=== PATIENT | female | born 1945 | race Caucasian/White ===

== ENCOUNTER 2019-01-12 11:27 | Emergency (ER) | payer MEDICARE, BC ==
[2019-01-12] MEDS ORDERED: Sodium Chloride 0.9% 10 ML Syringe FLUSH PRN (11:49)
--- NOTE | 2019-01-12 14:47 | EDM.PDOC ---
ED HPI GENERAL MEDICAL PROBLEM - General Chief Complaint: Genitourinary Problem Stated Complaint: KIDNEY FAILURE Time Seen by Provider: 01/12/19 11:50 Source of Information: Reports: Patient History Limitations: Reports: No Limitations - History of Present Illness INITIAL COMMENTS - FREE TEXT/NARRATIVE: Patient is a 73 year old female with hx of stage 5 CKD who presents to the E.D. to have labs checked. Patient has a history of n/v and has been dry heaving this weekend. She see's Dr. Calle. Patient states the n/v is a chronic issue. THis has been going on for some time. Patient has been in contact with Dr. Calle's clinic this a.m. with instructions to come to the E.D. to ensure kidney failure is not worsening. Patient is not on dialysis currently. Patient has been eating and drinking okay. Denies loss of weight, fever, chills, sob, cp , pnd, orthopnea, dizziness, dysuria, and or increased swelling to lower extremities. Patient has been unable to schedule an appt with Dr. Calle as of recent and is frustrated. - Related Data Allergies Allergy/AdvReac Type Severity Reaction Status Date / Time No Known Allergies Allergy Verified 01/12/19 11:37 Home Meds: Home Meds Allopurinol [Zyloprim] 200 mg PO DAILY 01/12/19 [History] Apixaban [Eliquis] 2.5 mg PO BID 01/12/19 [History] Calcitriol 0.25 mcg PO DAILY 01/12/19 [History] Furosemide 20 mg PO DAILY 01/12/19 [History] Metoclopramide HCl [Reglan] 5 mg PO TID #40 tablet 01/12/19 [Rx] Metoprolol Succinate [Toprol XL 100mg] 100 mg PO DAILY 01/12/19 [History] Metoprolol Succinate [Toprol XL 50mg] 50 mg PO BEDTIME 01/12/19 [History] Omeprazole 20 mg PO DAILY 01/12/19 [History] Sodium Bicarbonate 650 mg PO Q6H 01/12/19 [History] Venlafaxine HCl [Venlafaxine ER] 150 mg PO DAILY 01/12/19 [History] amLODIPine [Norvasc] 10 mg PO DAILY 01/12/19 [History] atorvaSTATin [Lipitor] 10 mg PO BEDTIME 01/12/19 [History] rOPINIRole [Requip] 1 mg PO BEDTIME 01/12/19 [History] Past Medical History - Past Health History Medical/Surgical History: Denies Medical/Surgical History Cardiovascular History: Reports: Hypertension Genitourinary History: Reports: Acute Renal Failure Musculoskeletal History: Reports: Arthritis Neurological History: Reports: Migraines Social & Family History - Tobacco Use Smoking Status *Q: Never Smoker - Recreational Drug Use Recreational Drug Use: No ED ROS GENERAL - Review of Systems Review Of Systems: ROS reveals no pertinent complaints other than HPI. ED EXAM, GENERAL - Physical Exam Exam: See Below Exam Limited By: No Limitations General Appearance: Alert, WD/WN, No Apparent Distress Ears: Hearing Grossly Normal Nose: Normal Inspection Throat/Mouth: Normal Voice, No Airway Compromise Neck: Normal Inspection, Supple Respiratory/Chest: No Respiratory Distress, Lungs Clear, Normal Breath Sounds, No Accessory Muscle Use Cardiovascular: Normal Peripheral Pulses, Regular Rate, Rhythm, No Murmur ( obvious) Peripheral Pulses: 2+: Radial (R) GI/Abdominal: Normal Bowel Sounds, Soft, Non-Tender, No Organomegaly, No Distention Back Exam: Normal Inspection Extremities: Normal Inspection, Normal Range of Motion, Non-Tender, Pedal Edema (trace) Neurological: Alert, Oriented, CN II-XII Intact, Normal Cognition, No Motor/ Sensory Deficits Psychiatric: Normal Affect, Normal Mood Skin Exam: Warm, Dry, Intact, Normal Color Course - Vital Signs Last Recorded V/S: Last Vital Signs Temp 97.4 F 01/12/19 11:34 Pulse 94 01/12/19 11:34 Resp 16 01/12/19 11:34 BP 159/90 H 01/12/19 11:34 Pulse Ox 95 01/12/19 11:34 - Orders/Labs/Meds Labs: Laboratory Tests 01/12/19 01/12/19 01/12/19 Range/Units 12:08 12:39 12:39 WBC 7.05 (3.98-10.04) K/mm3 RBC 3.59 L (3.98-5.22) M/mm3 Hgb 10.6 L (11.2-15.7) gm/L Hct 33.0 L (34.1-44.9) % MCV 91.9 (79.4-94.8) fl MCH 29.5 (25.6-32.2) pg MCHC 32.1 L (32.2-35.5) g/dl RDW Std Deviation 47.4 H (36.4-46.3) fL Plt Count 280 (182-369) K/mm3 MPV 10.6 (9.4-12.3) fl Neutrophils % (Manual) 81 H (40-60) % Band Neutrophils % 0 (0-10) % Lymphocytes % (Manual) 10 L (20-40) % Atypical Lymphs % 0 % Monocytes % (Manual) 6 (2-10) % Eosinophils % (Manual) 1 (0.7-5.8) % Basophils % (Manual) 2 H (0.1-1.2) Platelet Estimate Adequate RBC Morph Comment Normal Sodium 144 (136-145) mEq/L Potassium 4.0 (3.5-5.1) mEq/L Chloride 108 H (98-107) mEq/L Carbon Dioxide 23 (21-32) mEq/L Anion Gap 17.0 H (5-15) BUN 65 H (7-18) mg/dL Creatinine 4.9 H (0.55-1.02) mg/dL Est Cr Clr Drug Dosing 8.46 mL/min Estimated GFR (MDRD) 9 (>60) mL/min BUN/Creatinine Ratio 13.3 L (14-18) Glucose 94 (83-115) mg/dL Calcium 9.0 (8.5-10.1) mg/dL Total Bilirubin 0.5 (0.2-1.0) mg/dL AST 17 (15-37) U/L ALT 16 (14-59) U/L Alkaline Phosphatase 67 (46-116) U/L Total Protein 7.2 (6.4-8.2) g/dl Albumin 3.7 (3.4-5.0) g/dl Globulin 3.5 gm/dL Albumin/Globulin Ratio 1.1 (1-2) Lipase 108 (73-393) U/L Urine Color Yellow (Yellow) Urine Appearance Slt cloudy H (Clear) Urine pH 5.5 (5.0-8.0) Ur Specific [place] 1.020 (1.005-1.030) Urine Protein 3+ H (Negative) Urine Glucose (UA) Negative (Negative) Urine Ketones Negative (Negative) Urine Occult Blood 2+ H (Negative) Urine Nitrite Negative (Negative) Urine Bilirubin Negative (Negative) Urine Urobilinogen 0.2 (0.2-1.0) Ur Leukocyte Esterase Trace H (Negative) Urine RBC Not seen (0-5) /hpf Urine WBC 10-20 H (0-5) /hpf Urine WBC Clumps Few (NOT SEEN) /hpf Ur Squamous Epith Cells Not seen (0-5) /hpf Urine Bacteria Moderate H (FEW) /hpf Urine Mucus Few (FEW) /hpf Meds: Medications Discontinued Medications Generic Name Dose Route Start Last Admin Trade Name Rogerio PRN Reason Stop Dose Admin Metoclopramide HCl 5 mg 01/12/19 14:53 01/12/19 15:26 Reglan IVPUSH 01/12/19 14:54 5 mg ONETIME ONE Administration Sodium Chloride 10 ml 01/12/19 11:49 01/12/19 12:42 Saline Flush FLUSH 10 ml ASDIRECTED PRN Administration Keep Vein Open - Re-Assessments/Exams Free Text/Narrative Re-Assessment/Exam: Vital signs are stable. Patient is afebrile. O2 sats normal. Will obtain some basic labs as well as a UA. Labs have come back white blood cell count 7.05, hemoglobin 10.6, platelet count normal, sodium 144, potassium 4.0, AG 17, BUN 65, creatinine 4.9 which is her baseline. BUN is also her baseline 2.. Lipase 108. UA 3+ protein, 2+ blood, leukocyte Estrace trace, white blood cells 10-20, bacteria moderate. I have asked to speak with Dr. Calle. [place]. They will page out on-call public defender and call back when available. [id number] Loyd public defender with [facility]. Reviewed all labs with Dr. Loyd with no concerns. Creatinine and BUN are baseline. CO2 normal. In addition discussed UA results, since patient having no symptoms no treatment at this time. Recommended Reglan 5 mg one tab 3 times a day 30 minutes before meals for 2 days then every morning 5 mg 30 minutes before breakfast. Schedule appt with Dr. Calle to be evaluated in two wks. Discussed lab results and discussion nephrology with the patient. Return precautions were discussed with the patient. She had no further questions or concerns. Departure - Departure Time of Disposition: 14:54 Disposition: Home, Self-Care 01 Condition: Good Clinical Impression: Nausea and vomiting Qualifiers: Vomiting type: unspecified Vomiting Intractability: non-intractable Qualified Code(s): R11.2 - Nausea with vomiting, unspecified Chronic renal failure Qualifiers: Chronic kidney disease stage: stage 5 Qualified Code(s): N18.5 - Chronic kidney disease, stage 5 - Discharge Information Prescriptions: Metoclopramide HCl [Reglan] 5 mg PO TID #40 tablet Instructions: Nausea and Vomiting, Adult, Chronic Kidney Disease, Adult, Easy- to-Read Referrals: Yash Jackson MD [Primary Care Provider] - Chris Calle MD [Ordering Only Provider] - Forms: ED Department Discharge Additional Instructions: I spoke with Dr. Loyd with nephrology at [facility]. He recommended starting you on Reglan 5 mg one tab 3 times a day 30 minutes before meals for 2 days then 5 mg every morning half-hour before breakfast thereafter. Make an appointment with Dr. Calle for 2 weeks. You can call today and schedule the appointment. Please return back to the ED if you develop any new or worsening symptoms.
[2019-01-12] MEDS ORDERED: Metoclopramide 10 MG/2 ML SDV IVPUSH ONE (14:53)
== END 2019-01-12 15:35 | disposition home or self-care (01) ==
LOC: JD.ED 11:27
DX: R11.2 Nausea with vomiting, unspecified (principal); I12.0 Hypertensive chronic kidney disease with stage 5 chronic kidney disease or end stage renal disease; N18.5 Chronic kidney disease, stage 5; Z79.899 Other long term (current) drug therapy
CPT/HCPCS: 36415; 80053; 81001; 83690; 85007; 85027; 87086; 87088; 87186; 96374; 99284; J2765

== ENCOUNTER 2019-01-18 12:54 | Emergency (ER) | payer MEDICARE, BC ==
[2019-01-18] MEDS ORDERED: LORazepam 0.5 MG Tab PO ONE (14:50)
--- NOTE | 2019-01-18 16:58 | EDM.PDOC ---
ED HPI GENERAL MEDICAL PROBLEM - General Chief Complaint: General Stated Complaint: CONFUSED SINCE MEDICATION CHANGE Time Seen by Provider: 01/18/19 14:35 Source of Information: Reports: Patient History Limitations: Reports: No Limitations - History of Present Illness INITIAL COMMENTS - FREE TEXT/NARRATIVE: 73-year-old female is brought in by her family for side effects from medication. Patient was seen here in the ER on January 12. She was started on Reglan for nausea and vomiting. She was also started on Keflex for UTI on . Patient reports she has finished the Keflex as prescribed. She states that the nausea and vomiting has improved. She reports since starting the Reglan she has worsening restlessness and anxiety. She states that she cannot sleep. She reports a decreased appetite. Reports associated dizziness. Denies any headaches. She's reports that she has chronic back pain and leg pain and feels slightly worse than normal. Family reports that she has confusion but on further investigation they actually describing more restlessness and anxiety. patient reports that she has fallen several times in the last month. She's not had any head trauma with these falls. She denies any headaches at this time. Primary care provider is Dr. Jackson. He has a past medical history of stage V chronic kidney disease. She is not on dialysis at this time. She does see a accounts payable supervisor, Dr. Calle for this. Her creatinine and GFR have remained stable for the last few months and at this time there are holding off on starting her on dialysis. Generalized Pain Score (Numeric/FACES): 8 - Related Data Allergies Allergy/AdvReac Type Severity Reaction Status Date / Time No Known Allergies Allergy Verified 01/18/19 13:40 Home Meds: Home Meds Allopurinol [Zyloprim] 200 mg PO DAILY 01/12/19 [History] Apixaban [Eliquis] 2.5 mg PO BID 01/12/19 [History] Calcitriol 0.25 mcg PO DAILY 01/12/19 [History] Furosemide 20 mg PO DAILY 01/12/19 [History] Metoclopramide HCl [Reglan] 5 mg PO TID #40 tablet 01/12/19 [Rx] Metoprolol Succinate [Toprol XL 100mg] 100 mg PO DAILY 01/12/19 [History] Metoprolol Succinate [Toprol XL 50mg] 50 mg PO BEDTIME 01/12/19 [History] Omeprazole 20 mg PO DAILY 01/12/19 [History] Sodium Bicarbonate 650 mg PO Q6H 01/12/19 [History] Venlafaxine HCl [Venlafaxine ER] 150 mg PO DAILY 01/12/19 [History] amLODIPine [Norvasc] 10 mg PO DAILY 01/12/19 [History] atorvaSTATin [Lipitor] 10 mg PO BEDTIME 01/12/19 [History] rOPINIRole [Requip] 1 mg PO BEDTIME 01/12/19 [History] Cephalexin [Keflex] 1 cap PO DAILY #5 capsule 01/14/19 [Rx] LORazepam [Ativan] 0.5 mg PO TID PRN #5 tablet 01/18/19 [Rx] Past Medical History - Past Health History Medical/Surgical History: Denies Medical/Surgical History Cardiovascular History: Reports: Hypertension Genitourinary History: Reports: Acute Renal Failure Musculoskeletal History: Reports: Arthritis Neurological History: Reports: Migraines Social & Family History - Tobacco Use Smoking Status *Q: Never Smoker Second Hand Smoke Exposure: No - Caffeine Use Caffeine Use: Reports: Soda - Recreational Drug Use Recreational Drug Use: No ED ROS GENERAL - Review of Systems Review Of Systems: See Below Constitutional: Reports: Decreased Appetite. Denies: Fever, Chills Respiratory: Reports: Cough. Denies: Shortness of Breath Cardiovascular: Denies: Chest Pain GI/Abdominal: Reports: Nausea, Vomiting. Denies: Abdominal Pain : Reports: No Symptoms Musculoskeletal: Reports: Back Pain (chronic back pain), Leg Pain (chronic leg pain) Neurological: Reports: Dizziness. Denies: Headache Psychiatric: Reports: Anxiety, Other (reports restlessness) ED EXAM, GENERAL - Physical Exam Exam: See Below Exam Limited By: No Limitations General Appearance: Alert, WD/WN, No Apparent Distress, Anxious, Obese Eye Exam: Bilateral Eye: Normal Inspection Ears: Normal External Exam Nose: Normal Inspection Throat/Mouth: Normal Inspection, Normal Voice, No Airway Compromise Respiratory/Chest: No Respiratory Distress, Lungs Clear, Normal Breath Sounds Cardiovascular: Normal Peripheral Pulses, Regular Rate, Rhythm, No Murmur GI/Abdominal: Normal Bowel Sounds, Soft, Non-Tender Back Exam: Normal Inspection Extremities: Normal Inspection Neurological: Alert, Oriented, Normal Cognition Psychiatric: Normal Affect, Normal Mood Skin Exam: Warm, Dry, Normal Color Course - Vital Signs Last Recorded V/S: Last Vital Signs Temp 97.0 F 01/18/19 13:34 Pulse 74 01/18/19 13:34 Resp 18 01/18/19 13:34 BP 177/93 H 01/18/19 13:34 Pulse Ox 97 01/18/19 13:34 - Orders/Labs/Meds Labs: Laboratory Tests 01/18/19 01/18/19 01/18/19 Range/Units 15:10 15:10 15:54 WBC 9.19 (3.98-10.04) K/mm3 RBC 3.71 L (3.98-5.22) M/mm3 Hgb 11.2 (11.2-15.7) gm/L Hct 33.7 L (34.1-44.9) % MCV 90.8 (79.4-94.8) fl MCH 30.2 (25.6-32.2) pg MCHC 33.2 (32.2-35.5) g/dl RDW Std Deviation 46.4 H (36.4-46.3) fL Plt Count 314 (182-369) K/mm3 MPV 10.7 (9.4-12.3) fl Neut % (Auto) 72.0 H (34.0-71.1) % Lymph % (Auto) 15.9 L (19.3-51.7) % [place] % (Auto) 7.3 (4.7-12.5) % Eos % (Auto) 3.8 (0.7-5.8) Baso % (Auto) 0.7 (0.1-1.2) % Neut # (Auto) 6.62 H (1.56-6.13) K/mm3 Lymph # (Auto) 1.46 (1.18-3.74) K/mm3 Dickenson # (Auto) 0.67 H (0.24-0.36) K/mm3 Eos # (Auto) 0.35 (0.04-0.36) K/mm3 Baso # (Auto) 0.06 (0.01-0.08) K/mm3 Manual Slide Review Abnormal smear Sodium 143 (136-145) mEq/L Potassium 4.1 (3.5-5.1) mEq/L Chloride 106 (98-107) mEq/L Carbon Dioxide 20 L (21-32) mEq/L Anion Gap 21.1 H (5-15) BUN 65 H (7-18) mg/dL Creatinine 4.6 H (0.55-1.02) mg/dL Est Cr Clr Drug Dosing 9.01 mL/min Estimated GFR (MDRD) 9 (>60) mL/min BUN/Creatinine Ratio 14.1 (14-18) Glucose 107 (83-115) mg/dL Calcium 8.7 (8.5-10.1) mg/dL Magnesium 1.8 (1.8-2.4) mg/dl Total Bilirubin 0.4 (0.2-1.0) mg/dL AST 16 (15-37) U/L ALT 17 (14-59) U/L Alkaline Phosphatase 69 (46-116) U/L Total Protein 7.6 (6.4-8.2) g/dl Albumin 4.1 (3.4-5.0) g/dl Globulin 3.5 gm/dL Albumin/Globulin Ratio 1.2 (1-2) Urine Color Yellow (Yellow) Urine Appearance Clear (Clear) Urine pH 5.5 (5.0-8.0) Ur Specific [place] 1.020 (1.005-1.030) Urine Protein 3+ H (Negative) Urine Glucose (UA) Negative (Negative) Urine Ketones Negative (Negative) Urine Occult Blood Trace-intact H (Negative) Urine Nitrite Negative (Negative) Urine Bilirubin Negative (Negative) Urine Urobilinogen 0.2 (0.2-1.0) Ur Leukocyte Esterase Negative (Negative) Urine RBC 0-5 (0-5) /hpf Urine WBC Not seen (0-5) /hpf Ur Squamous Epith Cells 0-5 (0-5) /hpf Urine Bacteria Not seen (FEW) /hpf Urine Mucus Not seen (FEW) /hpf Meds: Medications Discontinued Medications Generic Name Dose Route Start Last Admin Trade Name Freq PRN Reason Stop Dose Admin Lorazepam 0.5 mg 01/18/19 14:50 01/18/19 16:05 Ativan PO 01/18/19 14:51 0.5 mg ONETIME ONE Administration Lorazepam 0.5 mg 01/18/19 17:26 01/18/19 17:29 Ativan PO 01/18/19 17:27 0.5 mg ONETIME STA Administration - Re-Assessments/Exams Free Text/Narrative Re-Assessment/Exam: 01/18/19 16:56 Reviewed the lab results with the patient. She feels greatly improved after receiving some Ativan. I'll prescribe her some Ativan to take at home. She has already stopped the Reglan. This was stopped this yesterday afternoon. Half- life of Reglan was about 5 to 6 hours. She may continue to have some side effects from tonight and tomorrow morning but in her symptoms should improve. We will discharge her home. Discharge instructions as documented. Departure - Departure Time of Disposition: 16:56 Disposition: Home, Self-Care 01 Condition: Good Clinical Impression: Side effect of medication - Discharge Information *PRESCRIPTION DRUG MONITORING PROGRAM REVIEWED*: No *COPY OF PRESCRIPTION DRUG MONITORING REPORT IN PATIENT MARVIN: No Prescriptions: LORazepam [Ativan] 0.5 mg PO TID PRN #5 tablet PRN Reason: Anxiety Referrals: Yash Jackson MD [Primary Care Provider] - Forms: ED Department Discharge Additional Instructions: Take the Ativan as prescribed. 1 tab 3 times a day as needed for anxiety. Follow-up with your primary care provider this week for recheck your symptoms. Please return to ER if your symptoms change or worsen.
[2019-01-18] MEDS ORDERED: LORazepam 0.5 MG Tab PO STA (17:26)
== END 2019-01-18 17:25 | disposition home or self-care (01) ==
LOC: JD.ED 12:54
DX: R45.1 Restlessness and agitation (principal); F41.9 Anxiety disorder, unspecified; T45.0X5A Adverse effect of antiallergic and antiemetic drugs, initial encounter; R11.2 Nausea with vomiting, unspecified; I12.9 Hypertensive chronic kidney disease with stage 1 through stage 4 chronic kidney disease, or unspecified chronic kidney disease; N18.5 Chronic kidney disease, stage 5; Z79.899 Other long term (current) drug therapy; Z79.01 Long term (current) use of anticoagulants
CPT/HCPCS: 36415; 80053; 81001; 83735; 85025; 99284; A9270

== ENCOUNTER 2019-05-16 08:08 | Emergency (ER) | payer MEDICARE, BC ==
--- NOTE | 2019-05-16 08:19 | EDM.PDOC ---
ED HPI GENERAL MEDICAL PROBLEM - General Chief Complaint: Back Pain or Injury Stated Complaint: BACK PAIN Time Seen by Provider: 05/16/19 08:19 - History of Present Illness INITIAL COMMENTS - FREE TEXT/NARRATIVE: 74-year-old female presents emergency room with back pain. the patient is having continued back pain. This is been going on well over a month. Seems to be aggravated by sitting in the dialysis chair. She's been having significant discomfort with this. The patient also has been having problems with constipation however she was started on lactulose 30 mL twice a day and this fixed the problem the patient had multiple loose runny stools this created a mess several days ago she stopped the lactulose. She had a small BM yesterday. Patient has not had any loss of bowel or bladder control however she is on dialysis. She has not had any recent injuries to her back. - Related Data Allergies Allergy/AdvReac Type Severity Reaction Status Date / Time No Known Allergies Allergy Verified 05/16/19 08:16 Home Meds: Home Meds Allopurinol [Zyloprim] 200 mg PO DAILY 01/12/19 [History] Apixaban [Eliquis] 2.5 mg PO BID 01/12/19 [History] Calcitriol 0.25 mcg PO DAILY 01/12/19 [History] Furosemide 20 mg PO DAILY 01/12/19 [History] Metoclopramide HCl [Reglan] 5 mg PO TID #40 tablet 01/12/19 [Rx] Metoprolol Succinate [Toprol XL 100mg] 100 mg PO DAILY 01/12/19 [History] Metoprolol Succinate [Toprol XL 50mg] 50 mg PO BEDTIME 01/12/19 [History] Omeprazole 20 mg PO DAILY 01/12/19 [History] Sodium Bicarbonate 650 mg PO Q6H 01/12/19 [History] Venlafaxine HCl [Venlafaxine ER] 150 mg PO DAILY 01/12/19 [History] amLODIPine [Norvasc] 10 mg PO DAILY 01/12/19 [History] atorvaSTATin [Lipitor] 10 mg PO BEDTIME 01/12/19 [History] rOPINIRole [Requip] 1 mg PO BEDTIME 01/12/19 [History] LORazepam [Ativan] 0.5 mg PO TID PRN #5 tablet 01/18/19 [Rx] Acetaminophen/HYDROcodone [Morse 325-5 MG] 1 tab PO Q6H PRN #15 tablet 05/16/19 [Rx] Lactulose 10 gm PO Q12H #265 ml 05/16/19 [Rx] Past Medical History - Past Health History Medical/Surgical History: Denies Medical/Surgical History Cardiovascular History: Reports: Hypertension Genitourinary History: Reports: Acute Renal Failure Musculoskeletal History: Reports: Arthritis Neurological History: Reports: Migraines Social & Family History - Tobacco Use Smoking Status *Q: Never Smoker Second Hand Smoke Exposure: No - Caffeine Use Caffeine Use: Reports: Soda - Recreational Drug Use Recreational Drug Use: No ED ROS GENERAL - Review of Systems Review Of Systems: See Below Constitutional: Reports: No Symptoms Respiratory: Reports: No Symptoms Cardiovascular: Reports: No Symptoms GI/Abdominal: Reports: Constipation, Diarrhea. Denies: Nausea, Vomiting : Reports: No Symptoms ED EXAM,LOWER BACK PAIN/INJURY - Physical Exam Exam: See Below Exam Limited By: No Limitations General Appearance: Alert, No Apparent Distress, Other (She is slow to move around because of her right-sided low back) Head: Atraumatic, Normocephalic Neck: Normal Inspection, Supple, Non-Tender, Full Range of Motion. No: Lymphadenopathy (L), Lymphadenopathy (R) Respiratory/Chest: No Respiratory Distress, Lungs Clear, Normal Breath Sounds Cardiovascular: Regular Rate, Rhythm, No Edema, No Murmur GI/Abdominal: Normal Bowel Sounds, Soft, Non-Tender Back Exam: Normal Inspection, Muscle Spasm (In the right lower back paraspinous muscles from the top the lumbar region on down), Other (Straight leg raises bringing up localized back pain on the right no radicular symptoms). No: CVA Tenderness (L), CVA Tenderness (R), Vertebral Tenderness Course - Vital Signs Last Recorded V/S: Last Vital Signs Temp 36.1 C 05/16/19 08:15 Pulse 99 05/16/19 08:15 Resp 14 05/16/19 08:15 BP 134/95 H 05/16/19 08:15 Pulse Ox 100 05/16/19 08:15 - Re-Assessments/Exams Free Text/Narrative Re-Assessment/Exam: 05/16/19 09:03 Will refill the patient's lactulose she only has a small amount left we had a long discussion about how to use this decrease the dose if needed. Refer her back pain muscle relaxants or concerning as is the Morse however the Morse can give her some prompt pain relief so she can go to dialysis later today and be somewhat comfortable. We discussed constipating factors associated with the Morse usage and the importance of staying on the lactulose. The patient will need close clinical follow-up to see how everything is going she is in agreement to this. Departure - Departure Time of Disposition: 08:48 Disposition: Home, Self-Care 01 Clinical Impression: Constipation Lumbar strain Qualifiers: Encounter type: initial encounter Qualified Code(s): S39.012A - Strain of muscle, fascia and tendon of lower back, initial encounter - Discharge Information Prescriptions: Acetaminophen/HYDROcodone [Morse 325-5 MG] 1 tab PO Q6H PRN #15 tablet PRN Reason: Pain Lactulose 10 gm PO Q12H #265 ml Referrals: Yash Jackson MD [Primary Care Provider] - Forms: ED Department Discharge Additional Instructions: Return to the emergency room with any questions problems worsening symptoms. Follow-up with her regular doctor this next week. Continue using the lactulose 15 mL, or 1 tablespoon twice a day you can decrease the dose to 1 tablespoon once a day if her stools become too soft and hard to control. Use the pain medication only as needed. Take 1/2-1 tablet every 6-8 hours as needed. Use caution with this medication as it can cause sedation and limit your judgment.
== END 2019-05-16 09:06 | disposition home or self-care (01) ==
LOC: JD.ED 08:08
DX: S39.012A Strain of muscle, fascia and tendon of lower back, initial encounter (principal); K59.00 Constipation, unspecified; I10 Essential (primary) hypertension; M19.90 Unspecified osteoarthritis, unspecified site; Z79.899 Other long term (current) drug therapy; Z79.01 Long term (current) use of anticoagulants; X58.XXXA Exposure to other specified factors, initial encounter
CPT/HCPCS: 99283

== ENCOUNTER 2020-04-22 09:46 | Emergency (ER) | payer MEDICARE, BC ==
--- NOTE | 2020-04-22 10:11 | EDM.PDOC ---
ED HPI GENERAL MEDICAL PROBLEM - General Chief Complaint: Trauma Stated Complaint: [facility] Time Seen by Provider: 04/22/20 09:51 Source of Information: Reports: Patient, EMS History Limitations: Reports: No Limitations - History of Present Illness INITIAL COMMENTS - FREE TEXT/NARRATIVE: The patient presents by [facility] for a fall. She said she got up thi s morning and she was feeling good. She went to get dressed and felt dizzy that she describes as lightheadedness. She then fell forward and hit her head. She has a headache and neck pain. She is on eliquis for A-fib. She has no fever, chills, cough, congestion, runny nose, chest pain, shortness of breath, abdominal pain, nausea or vomiting. She is on dialysis 3 times per week. She has no hip or leg pain. She did hit her left arm where the fistula is. She has no pain upon palpation. Onset: Today Duration: Minutes: Location: Reports: Head, Neck Quality: Reports: Sharp Severity: Moderate Improves with: Reports: None Worsens with: Reports: None Associated Symptoms: Reports: Headaches. Denies: Chest Pain, Cough, Fever/Chills, Nausea/Vomiting, Shortness of Breath Head Pain Score (Numeric/FACES): 6 - Related Data Allergies Allergy/AdvReac Type Severity Reaction Status Date / Time No Known Allergies Allergy Verified 04/22/20 09:58 Home Meds: Home Meds Apixaban [Eliquis] 2.5 mg PO BID 01/12/19 [History] Furosemide 20 mg PO DAILY 01/12/19 [History] Metoclopramide HCl [Reglan] 5 mg PO TID #40 tablet 01/12/19 [Rx] Metoprolol Succinate [Toprol XL 100mg] 100 mg PO DAILY 01/12/19 [History] Metoprolol Succinate [Toprol XL 50mg] 50 mg PO BEDTIME 01/12/19 [History] Omeprazole 20 mg PO DAILY 01/12/19 [History] Sodium Bicarbonate 650 mg PO Q6H 01/12/19 [History] Venlafaxine HCl [Venlafaxine ER] 150 mg PO DAILY 01/12/19 [History] allopurinoL [Zyloprim] 200 mg PO DAILY 01/12/19 [History] amLODIPine [Norvasc] 10 mg PO DAILY 01/12/19 [History] atorvaSTATin [Lipitor] 10 mg PO BEDTIME 01/12/19 [History] calcitrioL [Calcitriol] 0.25 mcg PO DAILY 01/12/19 [History] rOPINIRole [Requip] 1 mg PO BEDTIME 01/12/19 [History] LORazepam [Ativan] 0.5 mg PO TID PRN #5 tablet 01/18/19 [Rx] Acetaminophen/HYDROcodone [[place] 325-5 MG] 1 tab PO Q6H PRN #15 tablet 05/16/19 [Rx] Lactulose 10 gm PO Q12H #265 ml 05/16/19 [Rx] Past Medical History - Past Health History Medical/Surgical History: Denies Medical/Surgical History Cardiovascular History: Reports: Hypertension Genitourinary History: Reports: Acute Renal Failure 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 Denies: Chest Pain GI/Abdominal: Reports: No Symptoms Genitourinary: Reports: No Symptoms Musculoskeletal: Reports: Neck Pain. Denies: Back Pain ED EXAM, GENERAL - Physical Exam Exam: See Below Exam Limited By: No Limitations General Appearance: Alert, No Apparent Distress Ears: Normal External Exam Nose: Normal Inspection Head: Atraumatic, Normocephalic Neck: Other (Mild tenderness to the upper to mid cervical spine) Respiratory/Chest: No Respiratory Distress, Lungs Clear, Normal Breath Sounds Cardiovascular: Regular Rate, Rhythm, No Edema, No Murmur GI/Abdominal: Soft, Non-Tender, No Organomegaly, No Mass Back Exam: Normal Inspection Extremities: Normal Inspection Neurological: Alert, Oriented, No Motor/Sensory Deficits EKG INTERPRETATION EKG Date: 04/22/20 Time: 09:58 Rhythm: A-Fib Rate (Beats/Min): 67 [place]: Normal P-Wave: Absent QRS: Normal ST-T: Normal QT: Normal Course - Vital Signs Last Recorded V/S: Last Vital Signs Temp 97.4 F 04/22/20 09:52 Pulse 79 04/22/20 09:52 Resp 18 04/22/20 09:52 BP 111/80 04/22/20 09:52 Pulse Ox 99 04/22/20 09:52 - Orders/Labs/Meds Orders: Active Orders 24 hr Category Date Time Status Cardiac Monitoring [RC] . DIRECTED Care 04/22/20 09:56 Active EKG Documentation Completion [RC] STAT Care 04/22/20 09:56 Active Peripheral IV Care [RC] . DIRECTED Care 04/22/20 09:56 Active Sodium Chloride 0.9% [Normal Saline] 500 ml Med 04/22/20 10:48 Ordered IV .BOLUS Sodium Chloride 0.9% [Saline Flush] Med 04/22/20 09:56 Active 10 ml FLUSH ASDIRECTED PRN Peripheral IV Insertion Adult [OM.PC] Stat Oth 04/22/20 09:56 Ordered Medication Orders Sodium Chloride (Saline Flush) 10 ml FLUSH ASDIRECTED PRN PRN Reason: Keep Vein Open Last Admin: 04/22/20 10:18 Dose: 10 ml Documented by: CHACHO Labs: Laboratory Tests 04/22/20 04/22/20 Range/Units 10:06 10:06 WBC 6.55 (3.98-10.04) K/mm3 RBC 3.76 L (3.98-5.22) M/mm3 Hgb 12.3 (11.2-15.7) gm/dl Hct 38.6 (34.1-44.9) % MCV 102.7 H D (79.4-94.8) fl MCH 32.7 H (25.6-32.2) pg MCHC 31.9 L (32.2-35.5) g/dl RDW Std Deviation 51.3 H (36.4-46.3) fL Plt Count 300 (182-369) K/mm3 MPV 10.3 (9.4-12.3) fl Neut % (Auto) 66.9 (34.0-71.1) % Lymph % (Auto) 18.0 L (19.3-51.7) % [place] % (Auto) 9.5 (4.7-12.5) % Eos % (Auto) 4.7 (0.7-5.8) Baso % (Auto) 0.6 (0.1-1.2) % Neut # (Auto) 4.38 (1.56-6.13) K/mm3 Lymph # (Auto) 1.18 (1.18-3.74) K/mm3 [place] # (Auto) 0.62 H (0.24-0.36) K/mm3 Eos # (Auto) 0.31 (0.04-0.36) K/mm3 Baso # (Auto) 0.04 (0.01-0.08) K/mm3 Sodium 138 (136-145) mEq/L Potassium 4.2 (3.5-5.1) mEq/L Chloride 97 L (98-107) mEq/L Carbon Dioxide 28 (21-32) mEq/L Anion Gap 17.2 H (5-15) BUN 33 H D (7-18) mg/dL Creatinine 5.4 H (0.55-1.02) mg/dL Est Cr Clr Drug Dosing 7.45 mL/min Estimated GFR (MDRD) 8 (>60) mL/min BUN/Creatinine Ratio 6.1 L (14-18) Glucose 98 (83-115) mg/dL Calcium 8.7 (8.5-10.1) mg/dL Total Bilirubin 0.4 (0.2-1.0) mg/dL AST 14 L (15-37) U/L ALT 16 (14-59) U/L Alkaline Phosphatase 52 (46-116) U/L Troponin I < 0.017 (0.00-0.056) ng/mL Total Protein 7.7 (6.4-8.2) g/dl Albumin 3.9 (3.4-5.0) g/dl Globulin 3.8 gm/dL Albumin/Globulin Ratio 1.0 (1-2) Meds: Medications Generic Name Dose Route Start Last Admin Trade Name Freq PRN Reason Stop Dose Admin Sodium Chloride 10 ml 04/22/20 09:56 04/22/20 10:18 Saline Flush FLUSH 10 ml ASDIRECTED PRN Administration Keep Vein Open - Re-Assessments/Exams Free Text/Narrative Re-Assessment/Exam: 04/22/20 10:14 I ordered an IV saline lock, EKG, CT of her head and cervical spine, and labs. 04/22/20 10:44 Her EKG shows atrial fibrillation with no acute changes. Her CT of her neck and cervical spine show nothing acute. Her CBC looks good. Her anion gap is elevated at 17.2. Her creatinine is elevated at 5.4. Her troponin is negative. 04/22/20 10:49 She still feels a little dizzy. I will get her a bolus of NS 500mls and discharge her home. Departure - Departure Time of Disposition: 10:50 Disposition: Home, Self-Care 01 Condition: Good Clinical Impression: Lightheaded Fall Qualifiers: Encounter type: initial encounter Qualified Code(s): W19.XXXA - Unspecified fall, initial encounter Head injury Qualifiers: Encounter type: initial encounter Qualified Code(s): S09.90XA - Unspecified injury of head, initial encounter Chronic renal failure Qualifiers: Chronic kidney disease stage: stage 5 Qualified Code(s): N18.5 - Chronic kidney disease, stage 5 - Discharge Information *PRESCRIPTION DRUG MONITORING PROGRAM REVIEWED*: Not Applicable *COPY OF PRESCRIPTION DRUG MONITORING REPORT IN PATIENT MARVIN: Not Applicable Forms: ED Department Discharge Additional Instructions: Take your medication as prescribed. Follow up with your doctor within a week. Please return if you are worse. Sepsis Event Note (ED) - Evaluation Sepsis Screening Result: No Definite Risk - Focused Exam Vital Signs: Vital Signs Temp Pulse Resp BP Pulse Ox 04/22/20 09:52 97.4 F 79 18 111/80 99 - My Orders Last 24 Hours: My Active Orders 04/22/20 09:56 Cardiac Monitoring [RC] . DIRECTED EKG Documentation Completion [RC] STAT Peripheral IV Care [RC] . DIRECTED Sodium Chloride 0.9% [Saline Flush] 10 ml FLUSH ASDIRECTED PRN Peripheral IV Insertion Adult [OM.PC] Stat 04/22/20 10:48 Sodium Chloride 0.9% [Normal Saline] 500 ml IV .BOLUS - Assessment/Plan Last 24 Hours: My Active Orders 04/22/20 09:56 Cardiac Monitoring [RC] . DIRECTED EKG Documentation Completion [RC] STAT Peripheral IV Care [RC] . DIRECTED Sodium Chloride 0.9% [Saline Flush] 10 ml FLUSH ASDIRECTED PRN Peripheral IV Insertion Adult [OM.PC] Stat 04/22/20 10:48 Sodium Chloride 0.9% [Normal Saline] 500 ml IV .BOLUS
[2020-04-22] MEDS: Sodium Chloride 0.9% 10 ML Syringe FLUSH PRN ×2 (10:18→11:30)
--- NOTE | 2020-04-22 10:36 | CT ---
CT cervical spine Technique: Multiple axial sections were obtained from above C1 inferiorly to the bottom of T2. Reconstructed sagittal and coronal images were reviewed. Comparison: No prior cervical spine imaging is available. Findings: Anterior osteophytes are noted within C2 through C6-7. Vertebral body heights are maintained. Disc spaces are fairly well preserved. Mild degenerative apophyseal change is scattered throughout the cervical spine. Mild ligamentum nuchal calcification is seen. No bony central canal stenosis or bony neural foraminal stenosis is seen. No abnormal subluxation is seen. Impression: 1. Mild degenerative change. 2. No acute fracture or abnormal subluxation is seen on CT study of the cervical spine. Diagnostic code #2 This report was dictated in MDT
--- NOTE | 2020-04-22 10:37 | CT ---
Head CT Technique: Multiple axial sections through the brain were obtained. Intravenous contrast was not utilized. Comparison: No prior intracranial imaging is available. Findings: Ventricles along with basal cisterns and sulci over the convexities are moderately prominent. Diminished density is noted within the periventricular and subcortical white matter compatible with fairly prominent small vessel ischemic demyelination change. 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 No other abnormal parenchymal densities are seen. No evidence of intracranial hemorrhage. No midline shift or mass-effect is seen. Atherosclerotic calcification is noted within the carotid siphon and within the vertebral vessels. Visualized paranasal sinuses shows opacified left frontal sinus as well as mucosal thickening within a portion of the left ethmoid sinus. Mastoid sinuses show nothing acute. No acute calvarial finding is appreciated. Impression: 1. Sinus findings as noted above which most likely represents chronic sinusitis. 2. Senescent change as described above. 3. No acute intracranial abnormality is appreciated. Diagnostic code #2 This report was dictated in MDT
[2020-04-22] MEDS ORDERED: Sodium Chloride 0.9% 500 ML IV ONE (10:48)
== END 2020-04-22 12:27 | disposition home or self-care (01) ==
LOC: JD.ED 09:46
DX: R42 Dizziness and giddiness (principal); S09.90XA Unspecified injury of head, initial encounter; I12.0 Hypertensive chronic kidney disease with stage 5 chronic kidney disease or end stage renal disease; N18.5 Chronic kidney disease, stage 5; M19.90 Unspecified osteoarthritis, unspecified site; F41.9 Anxiety disorder, unspecified; Z79.899 Other long term (current) drug therapy; Z99.2 Dependence on renal dialysis; Z79.82 Long term (current) use of aspirin; Z79.01 Long term (current) use of anticoagulants; W22.8XXA Striking against or struck by other objects, initial encounter
CPT/HCPCS: 36415; 70450; 72125; 80053; 84484; 85025; 93005; 99284; J7030; 99283

== ENCOUNTER 2021-01-31 10:58 | Day surgery (SDC) | payer MEDICARE, BC ==
--- NOTE | 2021-01-31 11:13 | PCM.PREANE ---
Preanesthetic Assessment - Procedure Proposed Procedure: right cataract - Anesthesia/Transfusion/Family Hx Anesthesia History: Prior Anesthesia Without Reaction Family History of Anesthesia Reaction: No Transfusion History: No Prior Transfusion(s) - Review of Systems General: No Symptoms Pulmonary: Shortness of Breath (walking) Cardiovascular: Dyspnea on Exertion Gastrointestinal: No Symptoms, Other (problems with stomach- gets diarrhea after eating sometimes) Neurological: No Symptoms Other: Reports: Easy Bleeding, Easy Bruising, Depression, Anxiety - Physical Assessment NPO Status Date: 01/30/21 NPO Status Time: 18:00 Vital Signs: 105/58 71 98% 97.8 20 Height: 5 ft 3 in Weight: 86.183 kg ASA Class: 3 Mental Status: Alert & Oriented x3 Airway Class: Mallampati = 2 Dentition: Reports: Missing Tooth/Teeth (no teeth on top) Thyro-Mental Finger Breadths: 3 Mouth Opening Finger Breadths: 3 ROM/Head Extension: Full Lungs: Clear to Auscultation, Normal Respiratory Effort Cardiovascular: Irregular Rhythm - Allergies Allergies/Adverse Reactions: Allergies Allergy/AdvReac Type Severity Reaction Status Date / Time No Known Allergies Allergy Verified 01/30/21 11:19 - Blood Blood Available: No - Anesthesia Plan Beta Cale: Metoprolol Med Last Dose Date: 01/29/21 - Acknowledgements Anesthesia Type Planned: MAC Pt an Appropriate Candidate for the Planned Anesthesia: Yes Alternatives and Risks of Anesthesia Discussed w Pt/Guardian: Yes Pt/Guardian Understands and Agrees with Anesthesia Plan: Yes PreAnesthesia Questionnaire - Past Health History Medical/Surgical History: Denies Medical/Surgical History Cardiovascular History: Reports: High Cholesterol, Hypertension Genitourinary History: Reports: Acute Renal Failure Other Genitourinary History: on dialysis 3x a week - shunt placed to left arm 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: Musculoskeletal History: Reports: Arthritis Neurological History: Reports: Migraines Psychiatric History: Reports: Anxiety Endocrine/Metabolic History: Reports: Obesity/BMI 30+ - SUBSTANCE USE Tobacco Use Status *Q: Never Tobacco User Tobacco Use Within Last Twelve Months: No Second Hand Smoke Exposure: No Days Per Week of Alcohol Use: 0 Recreational Drug Use History: No - HOME MEDS Home Medications: Home Meds Metoprolol Succinate [Toprol XL 100mg] 100 mg PO DAILY 01/12/19 [History] Metoprolol Succinate [Toprol XL 50mg] 50 mg PO BEDTIME 01/12/19 [History] Omeprazole 20 mg PO DAILY 01/12/19 [History] Venlafaxine HCl [Venlafaxine ER] 150 mg PO DAILY 01/12/19 [History] allopurinoL [Zyloprim] 200 mg PO DAILY 01/12/19 [History] calcitrioL [Calcitriol] 0.25 mcg PO DAILY 01/12/19 [History] rOPINIRole [Requip] 1 mg PO BEDTIME 01/12/19 [History] Gabapentin [Neurontin] 100 mg PO DAILY 05/30/20 [History] - CURRENT (IN HOUSE) MEDS Current Meds: Current Medications Brimonidine Tartrate (Brimonidine 0.2% Ophth Soln 5 Ml Bottle) 0 ml EYERT ASDIRECTED DARIAN Stop: 01/31/21 18:00 Cefuroxime Sodium (Cefuroxime 10 Mg/Ml Syringe) 0 mg EYERT ASDIRECTED DARIAN Stop: 01/31/21 18:00 Lidocaine HCl (Lidocaine 1% Pf 2 Ml Sdv) 0 ml INJECT ASDIRECTED DARIAN Stop: 01/31/21 18:00 Phenylephrine HCl (Phenylephrine 2.5% Ophth Soln 2 Ml Bot) 0 ml EYERT ASDIRECTED DARIAN Stop: 01/31/21 18:00 Pilocarpine HCl (Pilocarpine 4% Ophth Soln 15 Ml Bot) 0 ml EYERT ASDIRECTED DARIAN Stop: 01/31/21 18:00 Polymyxin/Trimethoprim Sulfate (Polymyxin B/Trimethoprim 10 Ml Bottle) 0 ml EYERT ASDIRECTED DARIAN Stop: 01/31/21 18:00 Tetracaine HCl (Tetracaine Hcl/Pf 0.5% 4 Ml Bottle) 0 ml EYEBOTH ASDIRECTED DARIAN Stop: 01/31/21 18:00 Tropicamide (Tropicamide 1% Ophth Soln 15 Ml Bottle) 0 ml EYERT ASDIRECTED DARIAN Stop: 01/31/21 18:00
[2021-01-31] MEDS: Polymyxin B/Trimethoprim 10 ML Bottle EYERT SCH ×4 (11:23→13:08)
[2021-01-31] MEDS: Brimonidine 0.2% Ophth Soln 5 ML Bottle EYERT SCH ×4 (11:29→13:08)
[2021-01-31] MEDS: Phenylephrine 2.5% Ophth Soln 2 ML Bot EYERT SCH ×6 (11:34→12:45)
[2021-01-31] MEDS: Tropicamide 1% Ophth Soln 15 ML Bottle EYERT SCH ×4 (11:38→12:35)
[2021-01-31] MEDS: Lidocaine 1% PF 2 ML SDV INJECT SCH ×2 (12:33→12:54)
[2021-01-31] MEDS: Tetracaine HCl/PF 0.5% 4 ML Bottle EYEBOTH SCH ×3 (12:33→12:55)
[2021-01-31] MEDS: Cefuroxime 10 MG/ML SYRINGE EYERT SCH ×2 (12:33→13:07)
[2021-01-31] MEDS: Pilocarpine 4% Ophth Soln 15 ML Bot EYERT SCH ×2 (12:34→13:08)
--- NOTE | 2021-01-31 13:11 | PCM48HPAN ---
Post Anesthesia Note - EVALUATION WITHIN 48HRS OF ANESTHETIC Vital Signs in Normal Range: Yes Patient Participated in Evaluation: Yes Respiratory Function Stable: Yes Airway Patent: Yes Cardiovascular Function Stable: Yes Hydration Status Stable: Yes Pain Control Satisfactory: Yes Nausea and Vomiting Control Satisfactory: Yes Mental Status Recovered: Yes Vital Signs: Last Vital Signs Temp 97.8 F 01/31/21 10:45 Pulse 71 01/31/21 10:45 Resp 20 01/31/21 10:45 BP 105/58 L 01/31/21 10:45 Pulse Ox 98 01/31/21 10:45
== END 2021-01-31 13:21 | disposition home or self-care (01) ==
LOC: JD.SDS 10:58
PROVIDERS: ATTEND Ophthalmology
DX: H25.813 Combined forms of age-related cataract, bilateral (principal); E78.00 Pure hypercholesterolemia, unspecified; I10 Essential (primary) hypertension; E66.9 Obesity, unspecified; Z90.49 Acquired absence of other specified parts of digestive tract; Z79.899 Other long term (current) drug therapy
CPT/HCPCS: 66984; J0697; C1780

== ENCOUNTER 2021-02-28 08:09 | Day surgery (SDC) | payer MEDICARE, BC ==
[~2021-02-28 08:09] MED LIST: Brimonidine 0.2% Ophth Soln 5 ML Bottle EYERT SCH; Cefuroxime 10 MG/ML SYRINGE EYELF SCH; Cefuroxime 10 MG/ML SYRINGE EYERT SCH; Lidocaine 1% PF 2 ML SDV INJECT SCH; Phenylephrine 2.5% Ophth Soln 2 ML Bot EYERT SCH; Pilocarpine 4% Ophth Soln 15 ML Bot EYELF SCH; Pilocarpine 4% Ophth Soln 15 ML Bot EYERT SCH; Polymyxin B/Trimethoprim 10 ML Bottle EYERT SCH; Tetracaine HCl/PF 0.5% 4 ML Bottle EYEBOTH SCH; Tropicamide 1% Ophth Soln 15 ML Bottle EYERT SCH
[2021-02-28] MEDS: Polymyxin B/Trimethoprim 10 ML Bottle EYELF SCH ×3 (08:29→10:23)
[2021-02-28] MEDS: Brimonidine 0.2% Ophth Soln 5 ML Bottle EYELF SCH ×3 (08:34→10:23)
[2021-02-28] MEDS: Phenylephrine 2.5% Ophth Soln 2 ML Bot EYELF SCH ×5 (08:39→10:01)
[2021-02-28] MEDS: Tropicamide 1% Ophth Soln 15 ML Bottle EYELF SCH ×4 (08:45→09:45)
--- NOTE | 2021-02-28 09:19 | PCM.PREANE ---
Preanesthetic Assessment - Procedure Proposed Procedure: Left eye cataract - Anesthesia/Transfusion/Family Hx Anesthesia History: Prior Anesthesia Without Reaction Transfusion History: No Prior Transfusion(s) - Review of Systems General: No Symptoms, Weakness Pulmonary: Shortness of Breath (when walking) Cardiovascular: Dyspnea on Exertion Gastrointestinal: No Symptoms, Other (occasional diarrhea) Other: Reports: Easy Bleeding, Easy Bruising, Depression, Anxiety - Physical Assessment NPO Status Date: 02/27/21 NPO Status Time: 19:00 Vital Signs: Last Vital Signs Temp 97.7 F 02/28/21 08:04 Pulse 78 02/28/21 08:04 Resp 18 02/28/21 08:04 BP 95/65 02/28/21 08:04 Pulse Ox 99 02/28/21 08:04 Height: 1.6 m Weight: 86.183 kg ASA Class: 3 Mental Status: Alert & Oriented x3 Airway Class: Mallampati = 2 Dentition: Reports: Edentulous (6 teeth left on the bottom), Missing Tooth/Teeth Thyro-Mental Finger Breadths: 3 Mouth Opening Finger Breadths: 3 Lungs: Clear to Auscultation, Normal Respiratory Effort Cardiovascular: Irregular Rhythm - Allergies Allergies/Adverse Reactions: Allergies Allergy/AdvReac Type Severity Reaction Status Date / Time No Known Allergies Allergy Verified 02/28/21 08:36 - Anesthesia Plan Beta Cale: Atenolol Med Last Dose Date: 02/27/21 Med Last Dose Time: 19:00 - Acknowledgements Anesthesia Type Planned: MAC Pt an Appropriate Candidate for the Planned Anesthesia: Yes Alternatives and Risks of Anesthesia Discussed w Pt/Guardian: Yes Pt/Guardian Understands and Agrees with Anesthesia Plan: Yes Additional Comments: Patient had dialysis on 02/27/21, 2.4 L taken AV fistula on [facility] PreAnesthesia Questionnaire - Past Health History Medical/Surgical History: Denies Medical/Surgical History HEENT History: Reports: Cataract, Glaucoma, Impaired Vision Cardiovascular History: Reports: Afib (hx of, on Eliquis , also on EKG from 04/2020), High Cholesterol, Hypertension Genitourinary History: Reports: Acute Renal Failure, Chronic Renal Insuffiency, Dialysis, Renal Calculus, Renal Disease Other Genitourinary History: on dialysis 3x a week - shunt placed to left arm (Sat, Sat, Saturday) 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: Musculoskeletal History: Reports: Arthritis Neurological History: Reports: Migraines Psychiatric History: Reports: Anxiety Endocrine/Metabolic History: Reports: Obesity/BMI 30+ - Past Surgical History HEENT Surgical History: Reports: Cataract Surgery GI Surgical History: Reports: Appendectomy, Cholecystectomy - SUBSTANCE USE Tobacco Use Status *Q: Never Tobacco User Recreational Drug Use History: No - HOME MEDS Home Medications: Home Meds Omeprazole 20 mg PO DAILY 01/12/19 [History] Venlafaxine HCl [Venlafaxine ER] 150 mg PO DAILY 01/12/19 [History] allopurinoL [Zyloprim] 200 mg PO DAILY 01/12/19 [History] calcitrioL [Calcitriol] 0.25 mcg PO DAILY 01/12/19 [History] rOPINIRole [Requip] 1 mg PO BEDTIME 01/12/19 [History] Gabapentin [Neurontin] 100 mg PO DAILY 05/30/20 [History] Apixaban [Eliquis] 2.5 mg PO ASDIRECTED 01/31/21 [History] atenoloL [Atenolol] 25 mg PO DAILY 01/31/21 [History] - CURRENT (IN HOUSE) MEDS Current Meds: Current Medications Brimonidine Tartrate (Brimonidine 0.2% Ophth Soln 5 Ml Bottle) 0 ml EYELF ASDIRECTED DARIAN Stop: 02/28/21 16:00 Last Admin: 02/28/21 08:34 Dose: 1 drop Documented by: Cefuroxime Sodium (Cefuroxime 10 Mg/Ml Syringe) 0 mg EYELF ASDIRECTED DARIAN Stop: 02/28/21 16:00 Lidocaine HCl (Lidocaine 1% Pf 2 Ml Sdv) 0 ml INJECT ASDIRECTED DARIAN Stop: 02/28/21 16:00 Phenylephrine HCl (Phenylephrine 2.5% Ophth Soln 2 Ml Bot) 0 ml EYELF ASDIRECTED DARIAN Stop: 02/28/21 16:00 Last Admin: 02/28/21 09:05 Dose: 1 drop Documented by: Pilocarpine HCl (Pilocarpine 4% Ophth Soln 15 Ml Bot) 0 ml EYELF ASDIRECTED DARIAN Stop: 02/28/21 16:00 Polymyxin/Trimethoprim Sulfate (Polymyxin B/Trimethoprim 10 Ml Bottle) 0 ml EYELF ASDIRECTED DARIAN Stop: 02/28/21 16:00 Last Admin: 02/28/21 08:29 Dose: 1 drop Documented by: Tetracaine HCl (Tetracaine Hcl/Pf 0.5% 4 Ml Bottle) 0 ml EYEBOTH ASDIRECTED DARIAN Stop: 02/28/21 16:00 Tropicamide (Tropicamide 1% Ophth Soln 15 Ml Bottle) 0 ml EYELF ASDIRECTED DARIAN Stop: 02/28/21 16:00 Last Admin: 02/28/21 09:10 Dose: 1 drop Documented by: Discontinued Medications Brimonidine Tartrate (Brimonidine 0.2% Ophth Soln 5 Ml Bottle) 0 ml EYERT ASDIRECTED DARIAN Stop: 05/31/20 18:00 Cefuroxime Sodium (Cefuroxime 10 Mg/Ml Syringe) 0 mg EYERT ASDIRECTED DARIAN Stop: 05/31/20 18:00 Lidocaine HCl (Lidocaine 1% Pf 2 Ml Sdv) 0 ml INJECT ASDIRECTED DARIAN Stop: 05/31/20 18:00 Phenylephrine HCl (Phenylephrine 2.5% Ophth Soln 2 Ml Bot) 0 ml EYERT ASDIRECTED DARIAN Stop: 05/31/20 18:00 Pilocarpine HCl (Pilocarpine 4% Ophth Soln 15 Ml Bot) 0 ml EYERT ASDIRECTED DARIAN Stop: 05/31/20 18:00 Polymyxin/Trimethoprim Sulfate (Polymyxin B/Trimethoprim 10 Ml Bottle) 0 ml EYERT ASDIRECTED DARIAN Stop: 05/31/20 18:00 Tetracaine HCl (Tetracaine Hcl/Pf 0.5% 4 Ml Bottle) 0 ml EYEBOTH ASDIRECTED DARIAN Stop: 05/31/20 18:00 Tropicamide (Tropicamide 1% Ophth Soln 15 Ml Bottle) 0 ml EYERT ASDIRECTED DARIAN Stop: 05/31/20 18:00
[2021-02-28] MEDS: Tetracaine HCl/PF 0.5% 4 ML Bottle EYEBOTH SCH ×2 (09:55→10:06)
--- NOTE | 2021-02-28 10:24 | PCM48HPAN ---
Post Anesthesia Note - EVALUATION WITHIN 48HRS OF ANESTHETIC Vital Signs in Normal Range: Yes Patient Participated in Evaluation: Yes Respiratory Function Stable: Yes Airway Patent: Yes Cardiovascular Function Stable: Yes Hydration Status Stable: Yes Pain Control Satisfactory: Yes Nausea and Vomiting Control Satisfactory: Yes Mental Status Recovered: Yes Vital Signs: Last Vital Signs Temp 36.5 C 02/28/21 08:04 Pulse 78 02/28/21 08:04 Resp 18 02/28/21 08:04 BP 95/65 02/28/21 08:04 Pulse Ox 99 02/28/21 08:04
== END 2021-02-28 10:35 | disposition home or self-care (01) ==
LOC: JD.SDS 08:09
PROVIDERS: ATTEND Ophthalmology
DX: H25.812 Combined forms of age-related cataract, left eye (principal); H25.89 Other age-related cataract; H35.363 Drusen (degenerative) of macula, bilateral; H35.3131 Nonexudative age-related macular degeneration, bilateral, early dry stage; H02.834 Dermatochalasis of left upper eyelid; H02.831 Dermatochalasis of right upper eyelid; H16.103 Unspecified superficial keratitis, bilateral; H16.223 Keratoconjunctivitis sicca, not specified as Sjogren's, bilateral; E78.00 Pure hypercholesterolemia, unspecified; I10 Essential (primary) hypertension; Z90.49 Acquired absence of other specified parts of digestive tract; Z98.890 Other specified postprocedural states; Z79.899 Other long term (current) drug therapy; Z96.1 Presence of intraocular lens
CPT/HCPCS: 66984; J0697; C1780

== ENCOUNTER 2021-06-05 10:11 | Emergency (ER) | payer MEDICARE, BC ==
--- NOTE | 2021-06-05 11:40 | CR ---
Abdomen: Supine and upright views of the abdomen were obtained. Comparison: Prior CT abdomen and pelvis exam of 10/19/13. Scattered gas within the small bowel and colon is noted. This gas does not appear to be within dilated bowel loops. Vascular calcification is seen. Diffuse degenerative change is noted within the spine. No free air is seen. Impression: 1. Findings believed to be chronic as noted above. Nothing acute is appreciated on 2 view abdominal x-ray. Diagnostic code #1
--- NOTE | 2021-06-05 12:51 | EDM.PDOC ---
ED HPI GENERAL MEDICAL PROBLEM - General Chief Complaint: Gastrointestinal Problem Stated Complaint: BLOODY STOOL Time Seen by Provider: 06/05/21 12:37 Source of Information: Reports: Patient, RN Notes Reviewed History Limitations: Reports: No Limitations - History of Present Illness INITIAL COMMENTS - FREE TEXT/NARRATIVE: Patient is a 76-year-old female presenting to the emergency department complaints of constipation. Ports she has not been able to have a bowel movement since 4 days ago. Complains of generalized abdominal tenderness. She attempted to have a bowel movement this morning and noticed a small amount of blood on the toilet paper. Reports a history of constipation, however is not currently taking anything for a bowel regimen. Abdomen Pain Score (Numeric/FACES): 3 - Related Data Allergies Allergy/AdvReac Type Severity Reaction Status Date / Time No Known Allergies Allergy Verified 06/05/21 11:05 Home Meds: Home Meds Omeprazole 20 mg PO DAILY 01/12/19 [History] Venlafaxine HCl [Venlafaxine ER] 150 mg PO DAILY 01/12/19 [History] allopurinoL [Zyloprim] 200 mg PO DAILY 01/12/19 [History] calcitrioL [Calcitriol] 0.25 mcg PO DAILY 01/12/19 [History] rOPINIRole [Requip] 1 mg PO BEDTIME 01/12/19 [History] Gabapentin [Neurontin] 100 mg PO DAILY 05/30/20 [History] Apixaban [Eliquis] 2.5 mg PO ASDIRECTED 01/31/21 [History] atenoloL [Atenolol] 25 mg PO DAILY 01/31/21 [History] Past Medical History - Past Health History Medical/Surgical History: Denies Medical/Surgical History HEENT History: Reports: Cataract, Glaucoma, Impaired Vision Cardiovascular History: Reports: Afib, High Cholesterol, Hypertension Genitourinary History: Reports: Acute Renal Failure, Chronic Renal Insuffiency, Dialysis, Renal Calculus, Renal Disease Other Genitourinary History: on dialysis 3x a week - shunt placed to left arm (Sat, Sat, Saturday) [employer] History: Reports: Musculoskeletal History: Reports: Arthritis Neurological History: Reports: Migraines Psychiatric History: Reports: Anxiety Endocrine/Metabolic History: Reports: Obesity/BMI 30+ - Past Surgical History HEENT Surgical History: Reports: Cataract Surgery GI Surgical History: Reports: Appendectomy, Cholecystectomy Social & Family History - Tobacco Use Tobacco Use Status *Q: Never Tobacco User Second Hand Smoke Exposure: No - Caffeine Use Caffeine Use: Reports: None - Recreational Drug Use Recreational Drug Use: No ED ROS GENERAL - Review of Systems Review Of Systems: See Below Constitutional: Reports: No Symptoms HEENT: Reports: No Symptoms Respiratory: Reports: No Symptoms Cardiovascular: Reports: No Symptoms Endocrine: Reports: No Symptoms GI/Abdominal: Reports: Abdominal Pain (generalized aching), Bloody Stool (small amount of blood on toilet paper), Constipation, Nausea. Denies: Vomiting : Reports: No Symptoms Musculoskeletal: Reports: No Symptoms Skin: Reports: No Symptoms Neurological: Reports: No Symptoms Psychiatric: Reports: No Symptoms Hematologic/Lymphatic: Reports: No Symptoms Immunologic: Reports: No Symptoms ED EXAM, GI/ABD - Physical Exam Exam: See Below Exam Limited By: No Limitations General Appearance: Alert, WD/WN, No Apparent Distress Respiratory/Chest: No Respiratory Distress, Lungs Clear, Normal Breath Sounds, No Accessory Muscle Use, Chest Non-Tender Cardiovascular: Normal Peripheral Pulses, Regular Rate, Rhythm, No Edema, No Gallop, No JVD, No Murmur, No Rub GI/Abdominal Exam: Normal Bowel Sounds, Soft, No Organomegaly, No Distention, No Abnormal Bruit, No Mass, Pelvis Stable, Tender (mild generalized ) Rectal (Female) Exam: Fecal Impaction. No: Bloody Stool Neurological: Alert, Oriented, CN II-XII Intact, Normal Cognition, Normal Gait, Normal Reflexes, No Motor/Sensory Deficits Psychiatric: Normal Affect, Normal Mood Skin Exam: Warm, Dry, Intact, Normal Color, No Rash Course - Vital Signs Last Recorded V/S: Last Vital Signs Temp 98.2 F 06/05/21 11:02 Pulse 80 06/05/21 11:02 Resp 16 06/05/21 11:02 BP 135/76 06/05/21 11:02 Pulse Ox 99 06/05/21 11:02 - Re-Assessments/Exams Free Text/Narrative Re-Assessment/Exam: Patient is a 76-year-old female presenting to the emergency department with complaints of constipation. Abdomen flat x-ray was obtained on triage shows no acute abnormalities. Has normal bowel gas pattern, however rectal exam did reveal hard stool collection within the rectal vault. Patient has some mild generalized abdominal tenderness. Bowel sounds are active. Treatment options discussed with patient and she is requesting to have soapsuds enema completed. I have ordered this. 06/05/21 14:29 She had a large bowel movement after the soapsuds enema and is feeling much better. We will discharge to home. Discussed stool softeners. Discharge instructions as documented. Departure - Departure Time of Disposition: 14:29 Disposition: Home, Self-Care 01 Condition: Good Clinical Impression: Constipation - Discharge Information *PRESCRIPTION DRUG MONITORING PROGRAM REVIEWED*: No *COPY OF PRESCRIPTION DRUG MONITORING REPORT IN PATIENT MARVIN: No Instructions: Constipation, Adult Referrals: Yash Jackson MD [Primary Care Provider] - Forms: ED Department Discharge Additional Instructions: Take Colace stool softener daily. Ensure you are taking an adequate amount of fluid. Return to ER as needed. Sepsis Event Note (ED) - Evaluation Sepsis Screening Result: No Definite Risk - Focused Exam Vital Signs: Vital Signs Temp Pulse Resp BP Pulse Ox 06/05/21 11:02 98.2 F 80 16 135/76 99
== END 2021-06-05 15:00 | disposition home or self-care (01) ==
LOC: JD.ED 10:11
DX: K59.00 Constipation, unspecified (principal); I10 Essential (primary) hypertension; E78.00 Pure hypercholesterolemia, unspecified; E66.9 Obesity, unspecified; Z68.33 Body mass index [BMI] 33.0-33.9, adult; Z79.899 Other long term (current) drug therapy
CPT/HCPCS: 74019; 74019-26; 99283-25

== ENCOUNTER 2021-08-24 21:41 | Emergency (ER) | payer MEDICARE, BC | END 2021-08-25 01:21 | disposition home or self-care (01) | LOC: JD.ED 21:41 | DX: H60.93 Unspecified otitis externa, bilateral (principal); J32.9 Chronic sinusitis, unspecified; I48.91 Unspecified atrial fibrillation; I12.0 Hypertensive chronic kidney disease with stage 5 chronic kidney disease or end stage renal disease; N18.6 End stage renal disease; E66.9 Obesity, unspecified; Z99.2 Dependence on renal dialysis; Z88.5 Allergy status to narcotic agent; Z79.01 Long term (current) use of anticoagulants; Z79.899 Other long term (current) drug therapy | CPT/HCPCS: 70450; 70450-26; 70486; 70486-26; 99283-25 ==

== ENCOUNTER 2021-10-21 14:56 | Emergency (ER) | payer MEDICARE, BC ==
[2021-10-21] MEDS ORDERED: Sodium Chloride 0.9% 10 ML Syringe FLUSH PRN (15:13)
[2021-10-21] MEDS ORDERED: Sodium Chloride 0.9% 1,000 ML IV SCH (15:15)
[2021-10-21] MEDS ORDERED: cefTRIAXone 1 GM in Sodium Chloride 0.9% 100 ML IV ONE (17:58)
== END 2021-10-21 19:10 | disposition home or self-care (01) ==
LOC: JD.ED 14:56
DX: R55 Syncope and collapse (principal); N39.0 Urinary tract infection, site not specified; E78.00 Pure hypercholesterolemia, unspecified; I12.0 Hypertensive chronic kidney disease with stage 5 chronic kidney disease or end stage renal disease; N18.6 End stage renal disease; I48.91 Unspecified atrial fibrillation; E66.9 Obesity, unspecified; Z68.31 Body mass index [BMI] 31.0-31.9, adult; Z88.5 Allergy status to narcotic agent; Z79.01 Long term (current) use of anticoagulants; Z79.899 Other long term (current) drug therapy; Z99.2 Dependence on renal dialysis
CPT/HCPCS: 36415; 80053; 81001; 83735; 84484; 85025; 86140; 87086; 93005; 96365; 99284; J0696; J7030; 93010; 99285

== ENCOUNTER 2022-04-20 08:11 | Emergency (ER) | payer MEDICARE, BC ==
[2022-04-20] MEDS ORDERED: Sodium Chloride 0.9% 10 ML Syringe FLUSH PRN (08:53)
[2022-04-20] MEDS ORDERED: Sodium Chloride 0.9% 1,000 ML IV STA (08:53)
[2022-04-20] MEDS ORDERED: HYDROmorphone 0.5 MG/0.5 ML Syringe IVPUSH ONE (08:54)
[2022-04-20] MEDS ORDERED: Ondansetron 4 MG/2 ML SDV IVPUSH ONE (09:20)
== END 2022-04-20 10:30 | disposition home or self-care (01) ==
LOC: JD.ED 08:11
DX: S39.012A Strain of muscle, fascia and tendon of lower back, initial encounter (principal); N39.0 Urinary tract infection, site not specified; I48.91 Unspecified atrial fibrillation; E78.00 Pure hypercholesterolemia, unspecified; I12.0 Hypertensive chronic kidney disease with stage 5 chronic kidney disease or end stage renal disease; N18.6 End stage renal disease; E66.9 Obesity, unspecified; Z68.33 Body mass index [BMI] 33.0-33.9, adult; Z88.5 Allergy status to narcotic agent; Z79.899 Other long term (current) drug therapy; Z86.16 Personal history of COVID-19; Z99.2 Dependence on renal dialysis
CPT/HCPCS: 36415; 74176; 80053; 83690; 85025; 96361; 96374; 96375; 99284; J1170; J2405; J3490; J7030

== ENCOUNTER 2022-09-05 11:19 | Emergency (ER) | payer MEDICARE, BC, MEDICAID ==
[2022-09-05 12:38] LABS: ESTIMATED GFR 16 mL/min (>60)
== END 2022-09-05 16:30 | disposition home or self-care (01) ==
LOC: JD.ED 11:19
DX: R07.89 Other chest pain (principal); I12.0 Hypertensive chronic kidney disease with stage 5 chronic kidney disease or end stage renal disease; E11.22 Type 2 diabetes mellitus with diabetic chronic kidney disease; N18.6 End stage renal disease; I48.91 Unspecified atrial fibrillation; E66.9 Obesity, unspecified; Z68.33 Body mass index [BMI] 33.0-33.9, adult; Z99.2 Dependence on renal dialysis; Z88.5 Allergy status to narcotic agent; Z79.899 Other long term (current) drug therapy
CPT/HCPCS: 36415; 71045; 71045-26; 80053; 83735; 83880; 84484; 85025; 86140; 93005; 99285

== ENCOUNTER 2023-03-11 23:11 | Emergency (ER) | payer MEDICARE, BC, MEDICAID ==
[2023-03-12] MEDS ORDERED: Ondansetron 4 MG/2 ML SDV IVPUSH ONE (01:17)
[2023-03-12] MEDS ORDERED: HYDROmorphone 0.5 MG/0.5 ML Syringe IVPUSH ONE (01:17)
== END 2023-03-12 02:54 | disposition home or self-care (01) ==
LOC: JD.ED 23:11
DX: M17.0 Bilateral primary osteoarthritis of knee (principal); I11.0 Hypertensive heart disease with heart failure; I50.9 Heart failure, unspecified; I48.0 Paroxysmal atrial fibrillation; E11.9 Type 2 diabetes mellitus without complications; E66.9 Obesity, unspecified; Z68.33 Body mass index [BMI] 33.0-33.9, adult; Z86.16 Personal history of COVID-19; Z88.5 Allergy status to narcotic agent; Z79.899 Other long term (current) drug therapy; Z79.01 Long term (current) use of anticoagulants; W19.XXXA Unspecified fall, initial encounter; Y93.01 Activity, walking, marching and hiking; Y92.009 Unspecified place in unspecified non-institutional (private) residence as the place of occurrence of the external cause
CPT/HCPCS: 73564; 96374; 96375; 99284; J1170; J2405

== ENCOUNTER 2023-03-12 19:56 | Emergency (ER) | payer MEDICARE, BC, MEDICAID ==
[2023-03-12] MEDS ORDERED: HYDROmorphone 0.5 MG/0.5 ML Syringe IVPUSH ONE (21:29)
[2023-03-12] MEDS ORDERED: Sodium Chloride 0.9% 10 ML Syringe FLUSH PRN (21:30)
[2023-03-12] MEDS ORDERED: Ondansetron 4 MG/2 ML SDV IVPUSH ONE (21:30)
[2023-03-12 23:25] LABS: BLOOD UREA NITROGEN,BUN 112 mg/dL (7-18); BUN/CREATININE RATIO 10.4 (14-18); CALCIUM 6.6 mg/dL (8.5-10.1); CARBON DIOXIDE,CO2 25 mEq/L (21-32); CHLORIDE,CL 98 mEq/L (98-107); CREATININE 10.8 mg/dL (0.55-1.02); ESTIMATED GFR 3 mL/min (>60); GLUCOSE RANDOM 134 mg/dL (70-99); SODIUM,NA 141 mEq/L (136-145)
== END 2023-03-13 00:48 ==
LOC: JD.ED 19:56
DX: S72.142A Displaced intertrochanteric fracture of left femur, initial encounter for closed fracture (principal); E11.65 Type 2 diabetes mellitus with hyperglycemia; E87.6 Hypokalemia; I48.91 Unspecified atrial fibrillation; E78.00 Pure hypercholesterolemia, unspecified; I11.0 Hypertensive heart disease with heart failure; I50.9 Heart failure, unspecified; E11.9 Type 2 diabetes mellitus without complications; E66.9 Obesity, unspecified; Z88.5 Allergy status to narcotic agent; Z79.01 Long term (current) use of anticoagulants; Z99.2 Dependence on renal dialysis; Z79.899 Other long term (current) drug therapy; W19.XXXA Unspecified fall, initial encounter; Y92.009 Unspecified place in unspecified non-institutional (private) residence as the place of occurrence of the external cause
CPT/HCPCS: 36415; 73502; 80048; 96374; 96375; 99285; J1170; J2405; 99284

== ENCOUNTER → 2023-06-05 | Day surgery (SDC) | payer MEDICARE, BC, MEDICAID ==
[~2023-06-05] MED LIST changes: -Brimonidine 0.2% Ophth Soln 5 ML Bottle EYERT SCH; -Cefuroxime 10 MG/ML SYRINGE EYELF SCH; -Cefuroxime 10 MG/ML SYRINGE EYERT SCH; +Lactated Ringers 1,000 ML IV SCH; -Lidocaine 1% PF 2 ML SDV INJECT SCH; +Midazolam 1 MG/ML 2 ML SDV ONE; +Phenylephrine 1% 10 MG/ML SDV ONE; -Phenylephrine 2.5% Ophth Soln 2 ML Bot EYERT SCH; -Pilocarpine 4% Ophth Soln 15 ML Bot EYELF SCH; -Pilocarpine 4% Ophth Soln 15 ML Bot EYERT SCH; -Polymyxin B/Trimethoprim 10 ML Bottle EYERT SCH; +Propofol 200 MG/20 ML SDV ONE; +Sodium Chloride 0.9% 1,000 ML IV SCH; +Sodium Chloride 0.9% 10 ML Syringe FLUSH PRN; +Sodium Chloride 0.9% 10 ML Syringe FLUSH SCH; +Sodium Chloride 0.9% 100 ML ONE; -Tetracaine HCl/PF 0.5% 4 ML Bottle EYEBOTH SCH; -Tropicamide 1% Ophth Soln 15 ML Bottle EYERT SCH; +fentaNYL 100 MCG/2 ML SDV ONE
[2023-06-05 08:21] LABS: ANION GAP 12.5 (5-15); BLOOD UREA NITROGEN,BUN 25 mg/dL (7-18); BUN/CREATININE RATIO 5.6 (14-18); CALCIUM 8.4 mg/dL (8.5-10.1); CARBON DIOXIDE,CO2 30 mEq/L (21-32); CHLORIDE,CL 98 mEq/L (98-107); CREATININE 4.5 mg/dL (0.55-1.02); ESTIMATED GFR 9 mL/min (>60); GLUCOSE RANDOM 76 mg/dL (70-99); POTASSIUM,K 3.5 mEq/L (3.5-5.1); SODIUM,NA 137 mEq/L (136-145)
== END | disposition home or self-care (01) ==
LOC: JD.SDS 07:01
PROVIDERS: ATTEND Surgery
DX: K29.50 Unspecified chronic gastritis without bleeding (principal); K29.80 Duodenitis without bleeding; K31.A0 Gastric intestinal metaplasia, unspecified; K44.9 Diaphragmatic hernia without obstruction or gangrene; K22.89 Other specified disease of esophagus; I12.0 Hypertensive chronic kidney disease with stage 5 chronic kidney disease or end stage renal disease; E11.22 Type 2 diabetes mellitus with diabetic chronic kidney disease; N18.6 End stage renal disease; D63.1 Anemia in chronic kidney disease; Z99.2 Dependence on renal dialysis; E66.9 Obesity, unspecified; Z68.30 Body mass index [BMI] 30.0-30.9, adult; I48.0 Paroxysmal atrial fibrillation; E78.00 Pure hypercholesterolemia, unspecified; Z86.16 Personal history of COVID-19; F33.1 Major depressive disorder, recurrent, moderate; Z90.49 Acquired absence of other specified parts of digestive tract; Z79.01 Long term (current) use of anticoagulants; Z79.899 Other long term (current) drug therapy; Z88.8 Allergy status to other drugs, medicaments and biological substances
CPT/HCPCS: 36415; 43239; 80048; J2371; J2704; J3490; J7030; J2250; J3010

== ENCOUNTER 2023-07-23 17:24 | Emergency (ER) | payer MEDICARE, BC, MEDICAID ==
[2023-07-23] MEDS ORDERED: Sodium Chloride 0.9% 10 ML Syringe FLUSH PRN (17:39)
[2023-07-23] MEDS ORDERED: Iopamidol 755 Mg/ML 100 ML Bottle IVPUSH ONE (18:13)
[2023-07-23] MEDS ORDERED: Sodium Chloride 0.9% 100 ML IV SCH (18:15)
[2023-07-23 18:21] LABS: BASOPHILS PERCENT AUTO 0.1 % (0.0-1.0); HEMATOCRIT 30.4 % (37.0-47.0); HEMOGLOBIN 10.3 gm/dl (12.0-16.0); IMMATURE GRAN ABSOLUTE AUTO 0.11 K/mm3 (0.00-0.05); IMMATURE GRAN PERCENT AUTO 0.6 % (0.0-0.4); LYMPHOCYTES ABSOLUTE AUTO 0.7 K/mm3 (1.0-4.8); LYMPHOCYTES PERCENT AUTO 4.1 % (24.0-44.0); MEAN CORPUSCULAR HEMOGLOBIN 32.6 pg (28.0-32.0); MEAN CORPUSCULAR HGB CONC 33.9 g/dl (32.0-36.0); MEAN CORPUSCULAR VOLUME 96.2 fl (83.0-99.0); MEAN PLATELET VOLUME 11.4 fl (9.4-12.3); MONOCYTES PERCENT AUTO 5.6 % (0.0-8.0); NEUTROPHILS ABSOLUTE AUTO 15.5 K/mm3 (1.8-7.7); NEUTROPHILS PERCENT AUTO 89.6 % (41.0-71.0); PLATELET COUNT,PLT 290 K/mm3 (150-400); RED BLOOD CELL COUNT 3.16 M/mm3 (4.10-5.30); WHITE BLOOD CELL COUNT,WBC 17.28 K/mm3 (3.9-11.3)
[2023-07-23 18:50] LABS: A/G RATIO 0.5 (1-2); ALANINE AMINOTRANSFERASE,ALT 16 U/L (14-59); ALBUMIN 2.1 g/dl (3.4-5.0); ALKALINE PHOSPHATASE 122 U/L (46-116); BILIRUBIN TOTAL 1.1 mg/dL (0.2-1.0); BLOOD UREA NITROGEN,BUN 12 mg/dL (7-18); BUN/CREATININE RATIO 4.1 (14-18); CALCIUM 7.8 mg/dL (8.5-10.1); CARBON DIOXIDE,CO2 32 mEq/L (21-32); CHLORIDE,CL 97 mEq/L (98-107); CREATININE 2.9 mg/dL (0.55-1.02); ESTIMATED GFR 16 mL/min (>60); GLUCOSE RANDOM 68 mg/dL (70-99); PROTEIN TOTAL,TP 6.1 g/dl (6.4-8.2); SODIUM,NA 137 mEq/L (136-145); TROPONIN I HIGH SENSITIVITY 48 pg/mL (<=51)
[2023-07-23 18:54] LABS: ASPARTATE AMNIOTRANSFERASE,AST 24 U/L (15-37); C-REACTIVE PROTEIN 14.6 mg/dL (<1.0)
[2023-07-23 19:04] LABS: INR 1.92; PROTHROMBIN TIME 19.6 SECONDS (9.7-12.0)
[2023-07-23] MEDS: Sodium Chloride 0.9% 1,000 ML IV SCH (19:50)
[2023-07-23] MEDS ORDERED: Magnesium Sulfate/Water 2 GM in Premix Bag 1 BAG IV ONE (20:48)
[2023-07-23 20:55] LABS: APPEARANCE,URINE TURBID (Clear); COLOR,URINE YELLOW (Yellow); PH,URINE 8.5 (5.0-8.0)
[2023-07-23 20:56] LABS: GLUCOSE,URINE NEGATIVE (Negative); PROTEIN,URINE 3+ (Negative)
[2023-07-23 20:58] LABS: BILIRUBIN,URINE NEGATIVE (Negative); KETONES,URINE NEGATIVE (Negative)
[2023-07-23 20:59] LABS: LEUKOCYTE ESTERASE,URINE 3+ (Negative); NITRITE,URINE NEGATIVE (Negative); OCCULT BLOOD,URINE 3+ (Negative); UROBILINOGEN,URINE 0.2 (0.2-1.0)
[2023-07-23 21:02] LABS: BACTERIA,URINE MANY /hpf (FEW); MUCUS,URINE FEW /hpf (FEW); RBC,URINE 50-75 /hpf (0-5); SQUAMOUS EPITHELIAL CELLS,UR 0-5 /hpf (0-5); WBC,URINE TOO NUMEROUS TO CNT /hpf (0-5)
[2023-07-23] MEDS ORDERED: cefTRIAXone 2 GM in Sodium Chloride 0.9% 100 ML IV ONE (21:08)
[2023-07-23] MEDS ORDERED: cefTRIAXone 1 GM in Sodium Chloride 0.9% 100 ML IV ONE (21:16)
[2023-07-23] MEDS ORDERED: Dextrose 10% in Water 500 ML IV SCH (23:45)
[2023-07-23] MEDS ORDERED: Dextrose 10% in Water 1,000 ML IV SCH (23:59)
[2023-07-24] MEDS: Sodium Chloride 0.9% 1,000 ML IV SCH (03:48)
[2023-07-24] MEDS ORDERED: VANCOMYCIN IV ONE (08:01)
[2023-07-24] MEDS ORDERED: SODIUM CHLORIDE 0.9% IV ONE (08:01)
[2023-07-24] MEDS ORDERED: VANCOmycin 1.5 GM/300 ML 1.5 GM in Premix Bag 1 BAG IV ONE ×2 (08:15→12:30)
[2023-07-24 19:18] LABS: BASOPHILS PERCENT AUTO 0.1 % (0.0-1.0); HEMATOCRIT 27.6 % (37.0-47.0); HEMOGLOBIN 9.5 gm/dl (12.0-16.0); IMMATURE GRAN PERCENT AUTO 0.5 % (0.0-0.4); LYMPHOCYTES ABSOLUTE AUTO 0.9 K/mm3 (1.0-4.8); LYMPHOCYTES PERCENT AUTO 4.5 % (24.0-44.0); MEAN CORPUSCULAR HEMOGLOBIN 32.8 pg (28.0-32.0); MEAN CORPUSCULAR HGB CONC 34.4 g/dl (32.0-36.0); MEAN CORPUSCULAR VOLUME 95.2 fl (83.0-99.0); MEAN PLATELET VOLUME 10.6 fl (9.4-12.3); MONOCYTES ABSOLUTE AUTO 1.1 K/mm3 (0.0-0.8); MONOCYTES PERCENT AUTO 5.8 % (0.0-8.0); NEUTROPHILS ABSOLUTE AUTO 17.3 K/mm3 (1.8-7.7); NEUTROPHILS PERCENT AUTO 89.1 % (41.0-71.0); NRBC ABSOLUTE 0.02 (0.00-0.02); NRBC PERCENT 0.1 % (0.0-0.2); PLATELET COUNT,PLT 260 K/mm3 (150-400); WHITE BLOOD CELL COUNT,WBC 19.44 K/mm3 (3.9-11.3)
[2023-07-24 19:39] LABS: INR 1.82; PROTHROMBIN TIME 18.6 SECONDS (9.7-12.0)
[2023-07-24 19:51] LABS: A/G RATIO 0.6 (1-2); ANION GAP 13.4 (5-15); BILIRUBIN TOTAL 0.8 mg/dL (0.2-1.0); BUN/CREATININE RATIO 5.1 (14-18); CALCIUM 7.8 mg/dL (8.5-10.1); CREATININE 3.7 mg/dL (0.55-1.02); EST CRCL DRUG DOSING (CG) 10.37 mL/min; MAGNESIUM 1.6 mg/dL (1.8-2.4); POTASSIUM,K 3.4 mEq/L (3.5-5.1); PROTEIN TOTAL,TP 5.6 g/dl (6.4-8.2)
[2023-07-24] MEDS ORDERED: Magnesium Sulfate/Water 4 GM in Premix Bag 2 BAG IV ONE (19:53)
[2023-07-24] MEDS ORDERED: cefTRIAXone 1 GM in Sodium Chloride 0.9% 100 ML IV ONE (19:54)
[2023-07-24] MEDS ORDERED: Magnesium Sulfate/Water 4 GM in Premix Bag 1 BAG IV ONE (20:06)
[2023-07-24] MEDS ORDERED: Naloxone 0.4 MG/ML SDV IVPUSH PRN (22:27)
[2023-07-24] MEDS ORDERED: HYDROmorphone 0.5 MG/0.5 ML Syringe IVPUSH ONE (22:27)
== END 2023-07-24 22:50 ==
LOC: JD.ED 17:24
DX: N39.0 Urinary tract infection, site not specified (principal); E11.65 Type 2 diabetes mellitus with hyperglycemia; E11.22 Type 2 diabetes mellitus with diabetic chronic kidney disease; I12.0 Hypertensive chronic kidney disease with stage 5 chronic kidney disease or end stage renal disease; N18.5 Chronic kidney disease, stage 5; E83.42 Hypomagnesemia; B96.20 Unspecified Escherichia coli [E. coli] as the cause of diseases classified elsewhere; E78.00 Pure hypercholesterolemia, unspecified; I48.91 Unspecified atrial fibrillation; Z99.2 Dependence on renal dialysis; Z86.16 Personal history of COVID-19; Z79.01 Long term (current) use of anticoagulants; Z79.899 Other long term (current) drug therapy; Z88.5 Allergy status to narcotic agent
CPT/HCPCS: 36415; 70450; 70496; 70498; 71045; 80053; 81001; 82140; 82947; 83605; 83735; 83880; 84484; 85025; 85610; 85730; 86140; 87040; 87077; 87086; 87088; 87154; 87186; 93005; 96361; 96365; 96366; 96367; 96368; 96375; 99285; C1758; J0696; J1170; J3370; J3475; J3490; J7030; J7042; Q9967; 93010